=== PATIENT | female | born 1975 | race Two or more races ===

== ENCOUNTER 2017-11-11 07:47 | Outpatient (CLI) | payer OTHER | END 2017-11-11 07:56 | disposition home or self-care (01) | LOC: MAMO-SONO 07:47 | DX: Z12.31 Encounter for screening mammogram for malignant neoplasm of breast (principal); N61.0 Mastitis without abscess; N60.19 Diffuse cystic mastopathy of unspecified breast ==

== ENCOUNTER 2018-02-27 07:52 | Outpatient (CLI) | payer OTHER | END 2018-02-27 07:58 | disposition home or self-care (01) | LOC: SONOGRAMA 07:52 | DX: R10.2 Pelvic and perineal pain (principal) ==

== ENCOUNTER 2020-01-23 14:35 | Outpatient (CLI) | payer OTHER | END 2020-01-23 14:40 | disposition home or self-care (01) | LOC: MAMO-SONO 14:35 | PROVIDERS: ATTEND Specialist | DX: Z12.31 Encounter for screening mammogram for malignant neoplasm of breast (principal); N60.11 Diffuse cystic mastopathy of right breast; N60.12 Diffuse cystic mastopathy of left breast ==

== ENCOUNTER 2021-08-19 08:24 | Outpatient (CLI) | payer OTHER | END 2021-08-19 08:38 | disposition home or self-care (01) | LOC: MAMO-SONO 08:24 | PROVIDERS: ATTEND Obstetrics & Gynecology | DX: N60.11 Diffuse cystic mastopathy of right breast (principal); N60.12 Diffuse cystic mastopathy of left breast ==

== ENCOUNTER → 2022-08-09 06:41 | Outpatient (CLI) | payer OTHER | END | disposition home or self-care (01) | LOC: LAB 06:41 | PROVIDERS: ATTEND Obstetrics & Gynecology Gynecology | DX: R07.9 Chest pain, unspecified (principal); I10 Essential (primary) hypertension; D64.9 Anemia, unspecified; D68.9 Coagulation defect, unspecified; D78.89 Other postprocedural complications of the spleen; N39.0 Urinary tract infection, site not specified ==

== ENCOUNTER 2022-08-31 06:12 | Day surgery (SDC) | payer OTHER ==
[~2022-08-31 06:12] MED LIST: [UNRECOGNIZED DRUG - OTHER]
[2022-08-31] MEDS ORDERED: MACROBID 100 M100 MG PO (09:12)
[2022-08-31] MEDS ORDERED: TRAM1TAB98 PO (09:13)
== END 2022-08-31 12:20 | disposition home or self-care (01) ==
LOC: CIR.AMB 06:12
PROVIDERS: ATTEND Obstetrics & Gynecology Gynecology
DX: N39.3 Stress incontinence (female) (male) (principal); Z20.822 Contact with and (suspected) exposure to COVID-19
CPT/HCPCS: 57288; C1771

== ENCOUNTER 2023-07-18 09:03 | Outpatient (CLI) | payer OTHER ==
[~2023-07-18 09:03] MED LIST changes: +MACROBID 100 M100 MG PO; +TRAM1TAB98 PO
== END 2023-07-18 09:05 | disposition home or self-care (01) ==
LOC: MAMO-SONO 09:03
PROVIDERS: ATTEND Obstetrics & Gynecology
DX: N60.11 Diffuse cystic mastopathy of right breast (principal); N60.12 Diffuse cystic mastopathy of left breast

== ENCOUNTER 2024-10-01 08:12 | Outpatient (CLI) | payer OTHER | END 2024-10-01 08:26 | disposition home or self-care (01) | LOC: MAMO-SONO 08:12 | PROVIDERS: ATTEND Obstetrics & Gynecology | DX: N60.11 Diffuse cystic mastopathy of right breast (principal); N60.12 Diffuse cystic mastopathy of left breast ==